=== PATIENT | female | born 1930 | race African-American/Black ===

== ENCOUNTER 2017-03-22 10:06 | Emergency (ER) | payer MEDICARE, MEDICAID ==
[~2017-03-22] VITALS: Ht 165.1 cm; Wt 72.6 kg
[~2017-03-22 10:06] MED LIST: ACETAMINOPHEN-1 EAC1 ORAL; ASPIRIN EC325 MG ORAL; ASPIRIN EC650 MG PO; AZITHROMYCIN250 MG ORAL; GLUCOPHAGE500 MG ORAL; LISINOPRIL20 MG ORAL; OMEPRAZOLE40 M1 ORAL; PHENERGAN6.25 MG/5 ORAL; PRILOSEC20 MG ORAL; SEROQUEL100 MG ORAL; SIMVASTATIN40 MG ORAL; TENORMIN25 MG ORAL; Vitamin B12 PO; ZANTAC300 MG ORAL; [UNRECOGNIZED DRUG - OTHER]
[2017-03-22 10:24] VITALS: BP 154/82
[2017-03-22 11:42] VITALS: BP 148/79
--- NOTE | 2017-03-23 15:23 | Emergency Room Report ---
History of Present Illness General Chief Complaint: Eye Problems Source: Patient Present Illness HPI 86-year-old female presents to ED for evaluation. Patient states she is supposed to get an "injection" for an eye infection. Was seen by her dog track kennel manager on Wednesday and was told that she needs an injection because "i have diabetes". Denies any burning sensation to the eyes. Denies any photophobia or discharge. Denies any fevers or chills. No other aggravating relieving factors. Denies any other associated Allergies: Coded Allergies: No Known Allergies (Verified , 08/08/07) Patient History Past Medical History: none, DM, HTN Past Surgical History: none Pertinent Family History: none Social History: Denies: smoking, alcohol use, drug use Now: No Immunizations: UTD Reviewed Nursing Documentation: PMH: Agreed, PSxH: Agreed Nursing Documentation-PMH Hx Cardiac Problems: Yes - Heart Attack Hx Hypertension: Yes Hx Diabetes: Yes Hx Cancer: No Hx Gastrointestinal Problems: No Hx Neurological Problems: No Review of Systems All Other Systems: negative except mentioned in HPI Physical Exam Vital Signs Date Time Temp Pulse Resp B/P (MAP) Pulse Ox O2 Delivery O2 Flow Rate FiO2 03/22/17 10:14 97.7 69 16 154/82 94 Room Air Sp02 EP Interpretation: reviewed, normal General Appearance: no apparent distress, alert, GCS 15, non-toxic Head: normocephalic, atraumatic Eyes: bilateral eye normal inspection, bilateral eye PERRL, bilateral eye EOMI ENT: hearing grossly normal, normal pharynx, no angioedema, normal voice Neck: normal inspection Respiratory: normal inspection Cardiovascular #1: normal inspection Gastrointestinal: normal inspection Rectal: deferred Genitourinary: no CVA tenderness Musculoskeletal: normal inspection Neurologic: alert, oriented x3, responsive, motor strength/tone normal, sensory intact, speech normal Psychiatric: normal inspection Skin: normal inspection Lymphatic: normal inspection Medical Decision Making Diagnostic Impression: Primary Impression: Macular degeneration Qualified Codes: H35.30 - Unspecified macular degeneration ER Course Hospital Course 86-year-old female presents to ED stating that she needs injection for her eyes. Because of infection in her eyes Differential diagnoses include: conjunctivitis, traumatic iritis, foreign body, corneal abrasion Clinical course Patient placed on stretcher. After initial history, physical exam reveals an elderly female in no acute distress. there is no photophobia. No scleral injection. No discharge. I spoke to dog track kennel manager Dr. Wayne. He saw the patient on the weekend and told patient that she may need an injection into her eye for macular degeneration. States that this was an initial discussion but no plans were made to proceed forward. states the patient does not have an eye infection and doesn't need antibiotics I discussed this with the patient. I explained to patient that she does not have an eye infection and will not receive any "injections" here or antibiotic prescriptions. I explained to her the finding of macular degeneration and plan by her dog track kennel manager. States that she will followup with her dog track kennel manager tomorrow Diagnosis - macular degeneration Stable and discharged to home. Followup with PMD/Optho. Return to ED if symptoms recur or worsen Last Vital Signs Date Time Temp Pulse Resp B/P (MAP) Pulse Ox O2 Delivery O2 Flow Rate FiO2 03/22/17 11:42 97.7 68 18 148/79 95 Room Air Status: improved Disposition: HOME, SELF-CARE Condition: Stable Referrals: NOT CHOSEN IPA/,REFERRING [facility] WAYNE Patient Instructions: Age-Related Macular Degeneration CANDE CROWELL M.D. Mar 23, 2017 15:23
== END 2017-03-22 11:42 | disposition home or self-care (01) ==
LOC: EMR 10:57
DX: H35.30 Unspecified macular degeneration (principal); E11.9 Type 2 diabetes mellitus without complications; I10 Essential (primary) hypertension; I25.2 Old myocardial infarction
CPT/HCPCS: 99282